=== PATIENT | male | born 1950 | race Caucasian/White ===

== ENCOUNTER 2024-06-01 14:47 | Inpatient (IN) ==
--- NOTE | 2024-06-01 15:02 | Emergency Department Note ---
Impression & Plan Acute pulmonary embolism, Chest pain ED Provider Note NAME: MAURY WOOD AGE: 73 SEX: M : 1950 ARRIVES VIA: Walk-In INFORMANT: Patient ED PROVIDER(S): Federico Jaramillo DO CHIEF COMPLAINT: chest pain HPI: Patient is a 73-year-old male who presents to the ER for right-sided chest wall pain. He notes this started 2 days ago. Is present with movement. Improves with rest. He denies any cough, congestion, or runny nose. No sore throat. No belly pain, nausea, vomiting, or diarrhea. No dysuria, urgency, or frequency. No other exacerbating or remitting factors. provides additional history and notes that he was seen and evaluated Dr. Chapa's office and sent emergently to the ER as he had a pneumothorax. He never had any chest x-ray or imaging done of his chest. ADDITIONAL HISTORY OBTAINED: Per HPI Chronic Medical/Social Conditions Affecting Care: Per HPI PAST MEDICAL HISTORY:See Below PAST SURGICAL HISTORY:See Below FAMILY HISTORY:See Below SOCIAL HISTORY:See Below HOME MEDICATIONS:See Below ALLERGIES:See Below VITALS:See Below PHYSICAL EXAMINATION: GENERAL: Sitting up in bed, alert, well appearing, well nourished, no distress, non-toxic EYE EXAM: normal conjunctiva. PERRL and EOM's grossly intact. OROPHARYNX: no exudate, no erythema, lips, buccal mucosa, and tongue normal and mucous membranes are moist NECK: supple, no nuchal rigidity, no adenopathy, non-tender LUNGS: Clear to auscultation. Normal chest wall mechanics HEART: no murmurs, S1 normal and S2 normal ABDOMEN: abdomen soft, non-tender, normo-active bowel sounds, no masses, no rebound or guarding. UPPER EXTREMITIES: upper extremities are grossly normal. LOWER EXTREMITIES: No pitting edema. NEURO EXAM: Normal sensorium, cranial nerves II-XII grossly intact, normal speech, no gross weakness of arms, no gross weakness of legs. MEDICAL DECISION MAKING: Patient is a 73-year-old male who presents ER for right-sided chest pain. IV was established and blood work was obtained. Labs show mild leukocytosis of 12,000. No significant anemia. INR unremarkable. BMP along with LFTs bilirubin was unremarkable. Troponin was negative. BMP normal. Lipase normal. Per patient was sent in for pneumothorax and needed a chest tube. Patient was seen and evaluated in a 1. After discussion with the and the patient he never had any imaging and this was all felt to be present following Dr. Chapa's exam. On my initial exam breath sounds were clear and patient was transferred to another room following a chest x-ray which showed no pneumothorax. CTA of the chest was obtained and did show PEs. Patient had no bleeding risk factors and this was discussed with him at length. He is placed on heparin drip and bolus. Discussed with the hospitalist admitted for further workup. Consults/Care Managements Discussions: Per [facility] Triage Nursing notes reviewed. Limited review of prior medical records performed Vital Signs: reviewed and remarkable for HTN Differential diagnosis: Cardiac ischemia, aortic dissection, pulmonary embolism, pneumothorax, pneumonia, pericarditis, myocarditis, esophageal rupture, GERD, cholecystitis, pancreatitis, musculoskeletal, as well as other pathologies. ER treatment provided: See below Diagnostics interpreted by me include EKG and cardiac monitoring as listed below: -Cardiac Monitoring: An order was placed for continuous cardiac monitoring. The monitor shows a rate of 80 with sinus rhythm. -ECG: Sinus rhythm with a first-degree AV block Left axis Right bundle branch block QTc 452 -Laboratory studies:Interpreted by me as stated above in MDM and shown below. Imaging studies: Xrays: As interpreted by me: Portable AP upright 1 view of the chest shows subtle opacity in the right lower lobe CTs show: CTA of the chest shows PEs Procedures:none Critical Care: I have personally spent 35 minutes of critical care time in the direct management of this patient. This includes bedside care, interpretation of diagnostic studies, and testing, discussion with consultants, patient, and family members, and other required patient management activities. This 35 minutes is in excess of all separately billable procedures. 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 Beliefs That Will Affect Care: Gnosticism Gnosticism Beliefs: Adventism Current Living Situation: Spouse Feels Safe at Home: Yes Safety Concerns: Feels Safe At This Time Assistive Devices: Glasses and Hearing Aid - Bilateral Allergies Allergies Allergy/AdvReac Type Severity Reaction Status Date / Time clindamycin Allergy Severe Hives Unverified 06/01/24 17:19 Home Meds Home Medications Medication Instructions Recorded Confirmed aspirin 81 mg chewable tablet 81 mg PO DAILY 06/01/24 06/01/24 rosuvastatin 5 mg tablet 5 mg PO HS 06/01/24 06/01/24 tamsulosin 0.4 mg capsule 0.4 mg PO HS 06/01/24 06/01/24 Results & Data (ED) Vital Signs Vital Signs - 24 hr 06/01/24 14:49 06/01/24 14:58 06/01/24 14:58 Temperature 36.4 C L Temperature Source Temporal Artery Scan Pulse Rate 84 Pulse Rate [Apical] 81 Respiratory Rate 20 18 Respiratory Effort / Characteristics Non-Labored Spontaneous Respiratory Depth Normal Respiratory Pattern Blood Pressure 181/79 H Blood Pressure [Left Arm] 155/86 H Blood Pressure Mean 113 Blood Pressure Mean [Left Arm] 109 Pulse Oximetry 95 95 96 Oxygen Delivery Method Room Air Sepsis Recent Fever Within 48 Hours No Sepsis New/Unexplained Change in Mental Status N/A Sepsis Action Taken by Nursing No Action Required 06/01/24 15:02 06/01/24 15:19 Temperature Temperature Source Pulse Rate 87 Pulse Rate [Apical] Respiratory Rate Respiratory Effort / Characteristics Non-Labored Spontaneous Respiratory Depth Normal Respiratory Pattern Regular Blood Pressure Blood Pressure [Left Arm] Blood Pressure Mean Blood Pressure Mean [Left Arm] Pulse Oximetry Oxygen Delivery Method Sepsis Recent Fever Within 48 Hours Sepsis New/Unexplained Change in Mental Status Sepsis Action Taken by Nursing Laboratory Data 06/01/24 15:11 06/01/24 15:11 Lab Results 06/01/24 Range/Units 15:11 WBC 12.64 H (4.8-10.8) K/ul RBC 4.91 (4.70-6.10) M/uL Hgb 15.3 (14.0-18.0) g/dl Hct 45.5 (42.0-52.0) % MCV 92.7 (80.0-100.0) fL MCH 31.2 (25.0-34.0) pg MCHC 33.6 (32.0-36.0) g/dL RDW Std Deviation 46.1 (36.4-46.3) fL RDW Coeff of Brendan 13.5 (11.5-14.5) % Plt Count 174 (130-400) K/uL MPV 10.6 (9.4-12.4) fL Immature Gran % (Auto) 0.3 % Neut % (Auto) 70.2 % Lymph % (Auto) 17.6 % Pondera % (Auto) 11.6 % Eos % (Auto) 0.1 % Baso % (Auto) 0.2 % Neut # (Auto) 8.89 H (1.40-6.50) K/uL Lymph # (Auto) 2.22 (1.20-3.40) K/uL [place]a # (Auto) 1.46 H (0.11-0.59) K/uL Eos # (Auto) 0.01 (0.00-0.50) K/uL Baso # (Auto) 0.02 (0.00-0.20) K/uL Immature Gran # (Auto) 0.04 (0.01-0.20) K/uL PT 10.9 (9.0-12.0) Seconds INR 1.0 (0.9-1.1) APTT 28 (21-31) Seconds PTT Ratio 1.0 Heparin Anti-Xa, Unfract Cancelled Sodium 137 (136-145) mmol/L Potassium 4.1 (3.5-5.1) mmol/L Chloride 102 (98-107) mmol/L Carbon Dioxide 26 (21-32) mmol/L Anion Gap 9 (3-11) BUN 14 (6-23) mg/dl Creatinine 0.95 (0.6-1.4) mg/dl Est Cr Clr Drug Dosing 90.9 ml/min eGFR 83.99 BUN/Creatinine Ratio 14.7 (10-20) Glucose 110 H (70-99(Fasting)) mg/dl Calcium 10.1 (8.6-10.3) mg/dl Total Bilirubin 1.2 H (0.2-1.0) mg/dl AST 20 (13-39) U/L ALT 19 (7-52) U/L Alkaline Phosphatase 71 (34-104) U/L Troponin I High Sens 7.6 (0-20) pg/ml B-Natriuretic Peptide 32 (0-100) pg/ml Total Protein 7.7 (6.0-8.3) gm/dl Albumin 4.5 (3.4-5.0) gm/dl Globulin 3.2 (2.5-4.0) gm/dl Albumin/Globulin Ratio 1.4 (0.9-2) Lipase 10 L (11-82) U/L Administered Medications Acetaminophen (Acetaminophen 500 Mg Tab) 1,000 mg PO Q8 [facility] Stop: 07/01/24 19:59 Last Admin: 06/01/24 20:53 Dose: 1,000 mg Documented By: LARA Heparin Sodium/Dextrose (Heparin Sodium/Dextrose) 25,000 units in 500 mls @ 34 mls/hr IV .[id number] [facility]; Protocol Stop: 07/01/24 17:29 Last Titration: 06/01/24 19:28 Dose: 1,700 units/hr, 34 mls/hr Documented By: LARA Co-signed By: JUAN FRANCISCO Admin: 06/01/24 17:22 Dose: 1,700 units/hr, 34 mls/hr Documented By: NAOMY Co-signed By: ESTEE Rosuvastatin Calcium (Rosuvastatin Calcium 5 Mg Tab) 5 mg PO [facility] Stop: 07/01/24 20:59 Last Admin: 06/01/24 20:53 Dose: 5 mg Documented By: LARA Tamsulosin HCl (Tamsulosin Hcl 0.4 Mg Cap) 0.4 mg PO [facility] Stop: 07/01/24 20:59 Last Admin: 06/01/24 20:53 Dose: 0.4 mg Documented By: [facility] Discontinued Medications Heparin Sodium (Porcine) (Heparin Sod (Porcine) 1000 Unit/Ml) 1 units IV NOW ONE Stop: 06/01/24 17:24 Last Admin: 06/01/24 17:23 Dose: 5,000 units Documented By: NAOMY Co-signed By: ESTEE Heparin Sodium/Dextrose (Heparin Iv Adult Wt-Based Standard W/ Initial Bolus Protocol) 1 each IV NOW STA; Protocol Stop: 06/01/24 17:09 Last Admin: 06/01/24 17:50 Dose: Not Given Documented By: NAOMY Ioversol (Optiray 320 125ml) 120 ml IV ONCE ONE Stop: 06/01/24 16:27 Last Admin: 06/01/24 16:26 Dose: 120 ml Documented By: MARSHAL Morphine Sulfate (Morphine Sulfate 4 Mg/Ml 1 Ml Carp\Vial) 4 mg IV NOW STA Stop: 06/01/24 17:46 Last Admin: 06/01/24 17:50 Dose: 4 mg Documented By: NAOMY Imaging Data Radiologist's Impression: Chest X-Ray 06/01/24 14:58 XR chest 1V portable CLINICAL HISTORY: Chest pain, nonspecific COMPARISON STUDY: No previous studies for comparison. FINDINGS: Lung volumes are normal. There is no pneumothorax. There are trace bilateral pleural effusions. Mild bibasilar opacities are greater on the right. There is mild cardiomegaly. There is no evidence for overt pulmonary edema. IMPRESSION: 1. Trace bilateral pleural effusions with bibasilar opacities, greater on the right. Atelectasis is favored although an infectious process could appear similar. Radiographic follow-up to ensure resolution is recommended. 2. Cardiomegaly without evidence for pulmonary edema. ACT 112: Negative or not required by law. Electronically signed by: Aleksander Betts M.D. 06/01/2024 3:56 PM Chest CTA 06/01/24 15:59 CT PULMONARY ANGIOGRAM. HISTORY: Chest pain TECHNIQUE: Enhanced CT examination of the chest was performed using pulmonary embolism protocol. IV CONTRAST: 100 mL of OMNIPAQUE 300 COMPARISON: None. FINDINGS: PULMONARY ARTERIES: Right lower lobe subsegmental pulmonary emboli LYMPH NODES: No lymphadenopathy by size criteria. CARDIOVASCULAR: Enlarged cardiac size. Right heart strain is present. No pericardial effusion. No aortic aneurysm. There are coronary artery calcifications in keeping with coronary artery disease. MEDIASTINUM: No solid or cystic mediastinal masses. The esophagus is normally decompressed. LUNGS/PLEURA: The central tracheo-bronchial tree is patent. Patchy airspace densities in right lower lobe. Small right pleural effusion. No pneumothorax. No suspicious pulmonary nodules. BONES: No suspicious osseous lesions. VISUALIZED LOWER NECK: Unremarkable. VISUALIZED UPPER ABDOMEN: Hepatosplenomegaly. Nodular thickening of left adrenal gland IMPRESSION: Right lower lobe pulmonary emboli in the subsegmental branches. Patchy densities in right lower lobe may represent a nonspecific airspace process however consideration includes pulmonary infarct. Pneumonia is possible as well. Cardiomegaly. Right-sided heart strain that is nonspecific. Notification to clinician of alert: [facility] was notified about above findings by phone on June 01, 2024 at 4:45 PM by Royal Crespo MD. Readback confirmation was obtained. ACT 112: Positive. There are findings on this exam that require communication between the performing entity and the patient following Patient Test Result Information Act ([place] ACT 112) guidelines Electronically signed by Royal Crespo 06-01-2024 4:47 PM Discharge Plan Visit Data Chief Complaint: Rib Injury/Pain Stated Complaint: X RAY, SOB, PAIN UNDER RIBS ED Provider: Federico Jaramillo Discharge Problem: Acute pulmonary embolism, Chest pain Patient Disposition: Admitted As Inpatient Discharge Instructions Interventions: ED Discharge Assessment Last Done: 06/01/24 19:13 Discharge Problem: Acute pulmonary embolism Qualifiers: Pulmonary embolism type: unspecified Acute cor pulmonale presence: unspecified Qualified Code(s): I26.99 - Other pulmonary embolism without acute cor pulmonale Chest pain Qualifiers: Chest pain type: unspecified Qualified Code(s): R07.9 - Chest pain, unspecified
--- NOTE | 2024-06-01 15:07 | Emergency Department Note ---
ED Visit Note I was asked by Dr. Dillon, ED attending physician, to perform a facial laceration repair on this 73-year-old male patient. Please see Dr. Dillon's dictation for further treatment and final disposition. PROCEDURE NOTE. Examination shows a 1.5 cm V-shaped flap laceration that is in very close proximity to the inferolateral lower eyelid origin. Patient provided verbal consent for laceration repair under local anesthesia. Using lidocaine 1% without epinephrine, good local anesthesia was administered. The wound was lightly cleansed with a Q-tip with a mixture of 9 and normal saline. In sterile fashion, the wound was then approximated using 6-0 nylon simple interrupted sutures x 6. The patient was dispensed a tube of bacitracin ophthalmic ointment. .
[2024-06-01 15:55] LABS: Albumin Globulin Ratio 1.4 (0.9-2); Albumin Level 4.5 gm/dl (3.4-5.0); BUN Creatinine Ratio 14.7 (10-20); Basophils # (auto) 0.02 K/uL (0.00-0.20); Basophils % (auto) 0.2 %; Bilirubin,Total 1.2 mg/dl (0.2-1.0); Calcium 10.1 mg/dl (8.6-10.3); Creatinine Clr Calc Pharmacy 90.9 ml/min; Eosinophils # (auto) 0.01 K/uL (0.00-0.50); Eosinophils % (auto) 0.1 %; Globulin 3.2 gm/dl (2.5-4.0); Hematocrit (blood only) 45.5 % (42.0-52.0); Hemoglobin 15.3 g/dl (14.0-18.0); Immature Granulocytes # (auto) 0.04 K/uL (0.01-0.20); Immature Granulocytes % (auto) 0.3 %; Lymphocytes # (auto) 2.22 K/uL (1.20-3.40); Lymphocytes % (auto) 17.6 %; Mean Corpuscular Hemoglobin 31.2 pg (25.0-34.0); Mean Corpuscular Hgb Conc 33.6 g/dL (32.0-36.0); Mean Corpuscular Volume 92.7 fL (80.0-100.0); Mean Platelet Volume 10.6 fL (9.4-12.4); Monocytes # (auto) 1.46 K/uL (0.11-0.59); Monocytes % (auto) 11.6 %; Neutrophils # (auto) 8.89 K/uL (1.40-6.50); Neutrophils % (auto) 70.2 %; Platelet Count 174 K/uL (130-400); Potassium 4.1 mmol/L (3.5-5.1); RDW Coefficient of Variation 13.5 % (11.5-14.5); RDW Standard Deviation 46.1 fL (36.4-46.3); Red Blood Count 4.91 M/uL (4.70-6.10); Total Protein 7.7 gm/dl (6.0-8.3); White Blood Count 12.64 K/ul (4.8-10.8)
--- NOTE | 2024-06-01 15:58 | XRay Report ---
XR chest 1V portable CLINICAL HISTORY: Chest pain, nonspecific COMPARISON STUDY: No previous studies for comparison. FINDINGS: Lung volumes are normal. There is no pneumothorax. There are trace bilateral pleural effusi ons. Mild bibasilar opacities are greater on the right. There is mild cardiomegaly. There is no evide nce for overt pulmonary edema. IMPRESSION: 1. Trace bilateral pleural effusions with bibasilar opacities, greater on the right. Atelectasis is f avored although an infectious process could appear similar. Radiographic follow-up to ensure resoluti on is recommended. 2. Cardiomegaly without evidence for pulmonary edema. ACT 112: Negative or not required by law. Electronically signed by: Aleksander Betts M.D. 06/01/2024 3:56 PM
[2024-06-01 16:01] LABS: Troponin I High Sensitivity 7.6 pg/ml (0-20)
--- NOTE | 2024-06-01 16:10 | Electrocardiogram Report ---
Test Reason : Blood Pressure : */* mmHG Vent. Rate : 85 BPM Atrial Rate : 85 BPM P-R Int : 242 ms QRS Dur : 126 ms QT Int : 380 ms P-R-T Axes : 85 -40 -17 degrees QTcB Int : 452 ms Sinus rhythm with 1st degree A-V block Left axis deviation Right bundle branch block Minimal voltage criteria for LVH, may be normal variant ( R in aVL ) Possible Lateral infarct , age undetermined Abnormal ECG No previous ECGs available Confirmed by Zach Mckeon ([id number]) on 06/01/2024 4:10:32 PM Referred By: Confirmed By: Zach Mckeon
[2024-06-01] MEDS: OPTIRAY 320 125ml IV ONE (16:26)
--- NOTE | 2024-06-01 16:48 | CT Scan Report ---
CT PULMONARY ANGIOGRAM. HISTORY: Chest pain TECHNIQUE: Enhanced CT examination of the chest was performed using pulmonary embolism protocol. IV CONTRAST: 100 mL of OMNIPAQUE 300 COMPARISON: None. FINDINGS: PULMONARY ARTERIES: Right lower lobe subsegmental pulmonary emboli LYMPH NODES: No lymphadenopathy by size criteria. CARDIOVASCULAR: Enlarged cardiac size. Right heart strain is present. No pericardial effusion. No aortic aneurysm. There are coronary artery calcifications in keeping with coronary artery disease. MEDIASTINUM: No solid or cystic mediastinal masses. The esophagus is normally decompressed. LUNGS/PLEURA: The central tracheo-bronchial tree is patent. Patchy airspace densities in right lower lobe. Small right pleural effusion. No pneumothorax. No suspicious pulmonary nodules. BONES: No suspicious osseous lesions. VISUALIZED LOWER NECK: Unremarkable. VISUALIZED UPPER ABDOMEN: Hepatosplenomegaly. Nodular thickening of left adrenal gland IMPRESSION: Right lower lobe pulmonary emboli in the subsegmental branches. Patchy densities in right lower lobe may represent a nonspecific airspace process however consideration includes pulmonary infarct. Pneumonia is possible as well. Cardiomegaly. Right-sided heart strain that is nonspecific. Notification to clinician of alert: [facility] was notified about above findings by phone on June 01, 2024 at 4:45 PM by Royal Crespo MD. Readback confirmation was obtained. ACT 112: Positive. There are findings on this exam that require communication between the performing entity and the patient following Patient Test Result Information Act ([place] ACT 112) guidelines Electronically signed by Royal Crespo 06-01-2024 4:47 PM
[2024-06-01] MEDS: HEPARIN SODIUM/DEXTROSE 25,000 UNITS/500 ML BAG IV SCH (17:22)
[2024-06-01] MEDS: HEPARIN SOD (PORCINE) 1000 UNIT/ML IV ONE (17:23)
--- NOTE | 2024-06-01 17:44 | History & Physical Report ---
Date of Service June 01, 2024 Assessment & Plan (1) Acute pulmonary embolism: (2) CAD (coronary artery disease): (3) BPH (benign prostatic hyperplasia): Plan: 73-year-old male with history of CAD, BPH presenting with chest pain, right lower rib area that started 2 days ago. Acute right lower lobe pulmonary emboli appears to be unprovoked PE No history of poor mobility, immobilization, hospitalization, surgery, long car drives or flights No known family history of venous thromboembolism CTA chest: Right lower lobe pulmonary emboli in the subsegmental branches. Patchy densities in right lower lobe may represent a nonspecific airspace process however consideration includes pulmonary infarct. Pneumonia is possible as well. Cardiomegaly. Right-sided heart strain that is nonspecific. Troponin negative Check echocardiogram Check BioFire IV heparin drip with bolus ordered Event Decorator And Designer consulted Will need to be referred to buttonhole maker hand for hypercoagulable workup, cancer screening History of CAD Status post stent 3 years ago Hold off on aspirin in light of heparin bolus and drip initiated today Resume if no bleeding, hemoglobin stable Continue Crestor History of BPH Continue Flomax CODE STATUS Full code Disposition Lives at home with his plan of care discussed with patient and his Tesha at bedside in detail and at length all questions answered they are understanding, agreeable, comfortable with the plan of care History of Present Illness Chief Complaint: Right lower chest pain times 2 days Primary Care Provider: Raven Savage DO 73-year-old male with history of CAD, BPH presenting with chest pain, right lower rib area that started 2 days ago. Patient was doing fine until last Friday when he developed sudden right lower rib/chest wall pain while resting-sharp, severe, worse with inspiration, associated with some shortness of breath with exertion. He was able to go to work yesterday but the chest pain actually worsened. Patient was taking Advil with minimal relief. Today, the pain persisted prompting consult to the ER. At the ER, patient was received with stable vital signs overall, not hypoxic. CT chest showed right lower lobe subsegmental pulmonary emboli. Troponin negative EKG no signs of acute ischemia or infarct Heparin drip with bolus started. IV morphine given On exam, patient seen sitting up in bed, on room air, not in distress. States morphine has provided some relief with his pain, but still significant. Denies active dizziness, headache, palpitations, nausea, fevers or chills. No other new symptoms No recent illness, immobilization, poor ambulation, surgery, long car drives or flights. Denies family history of blood clots. Allergies Allergy/AdvReac Type Severity Reaction Status Date / Time clindamycin Allergy Severe Hives Unverified 06/01/24 17:19 Home Medications Medication Instructions Recorded Confirmed Type aspirin 81 mg chewable tablet 81 mg PO DAILY 06/01/24 06/01/24 History rosuvastatin 5 mg tablet 5 mg PO HS 06/01/24 06/01/24 History tamsulosin 0.4 mg capsule 0.4 mg PO HS 06/01/24 06/01/24 History Past Med/Surg History Problem List (Updated 06/01/24 @ 19:32 by Tip Rosa MD) BPH (benign prostatic hyperplasia) CAD (coronary artery disease) Acute pulmonary embolism Social History Smoking Status: Never smoker Feels Safe at Home: Yes Review of Systems Review of Systems: all noted and negative except for above Physical Exam Physical Exam: General- oriented x 3, not in distress, speaks in sentences with no effort or accessory muscle use Head- atraumatic Eyes- PERRL, EOMI, anicteric ENT- oropharynx clear Neck- supple, no JVD, no adenopathy, no thyromegaly; carotids +2/2, no bruits appreciated Lungs- clear to auscultation bilaterally, no rales/wheezes Heart- normal rate, regular rhythm; no murmur, no gallop, no rub appreciated Abdomen- normal bowel sounds, nondistended, soft, nontender, no masses or hepatosplenomegaly Extremities- no pretibial edema, no calf tenderness; peripheral pulses intact Neuro- alert, oriented x 3; CN 2-12 grossly intact; motor 5/5 bilaterall y;sensation 100% on all extremities; no other gross focal neurologic deficits Skin- warm & dry Results & Data Results & Data Vital Signs (Past 12 Hours) Vital Signs Temp Pulse Pulse Resp BP BP Pulse Ox 06/01/24 15:02 87 06/01/24 14:58 96 06/01/24 14:58 81 18 155/86 H 95 06/01/24 14:49 36.4 C L 84 20 181/79 H 95 O2 Del Method 06/01/24 15:02 06/01/24 14:58 06/01/24 14:58 06/01/24 14:49 Room Air all noted and reviewed including below Code Status & VTE Plan VTE Prophylaxis Plan VTE Prophylaxis will be ordered: Yes
[2024-06-01] MEDS: Heparin IV Adult Wt-Based Standard w/ INITIAL Bolus Protocol IV STA (17:50)
[2024-06-01] MEDS: MoRPHine SULFATE 4 MG/ML 1 ML CARP\\VIAL IV STA (17:50)
[2024-06-01 18:16] LABS: Partial Thromboplastin Time 28 Seconds (21-31); Prothrombin Time 10.9 Seconds (9.0-12.0)
[2024-06-01] MEDS ORDERED: ACETAMINOPHEN 325 MG TAB PO PRN (19:34)
[2024-06-01] MEDS ORDERED: MoRPHine SULFATE 4 MG/ML 1 ML CARP\\VIAL IV PRN (19:39)
[2024-06-01] MEDS ORDERED: MAGNESIUM HYDROXIDE SUSP 30 ML UDC PO PRN (19:40)
[2024-06-01] MEDS ORDERED: ACETAMINOPHEN 500 MG TAB PO SCH (19:45)
[2024-06-01] MEDS: ACETAMINOPHEN 500 MG TAB PO SCH (20:53)
[2024-06-01] MEDS: ROSUVASTATIN CALCIUM 5 MG TAB PO SCH (20:53)
[2024-06-01] MEDS: TAMSULOSIN HCL 0.4 MG CAP PO SCH (20:53)
[2024-06-01 23:15] LABS: Adenovirus PCR Not Detected (NotDetected); Bordetella parapertussis PCR Not Detected (NotDetected); Bordetella pertussis PCR Not Detected (NotDetected); Chlamydia pneumoniae PCR Not Detected (NotDetected); Coronavirus 229E PCR Not Detected (NotDetected); Coronavirus CoV-2 (COVID19)PCR Not Detected (NotDetected); Coronavirus HKU1 PCR Not Detected (NotDetected); Coronavirus NL63 PCR Not Detected (NotDetected); Coronavirus OC43PCR Not Detected (NotDetected); Human Metapneumovirus PCR Not Detected (NotDetected); Influenza A PCR Not Detected (NotDetected); Influenza B PCR Not Detected (NotDetected); Mycoplasma pneumoniae PCR Not Detected (NotDetected); Parainfluenza Virus 1 PCR Not Detected (NotDetected); Parainfluenza Virus 2 PCR Not Detected (NotDetected); Parainfluenza Virus 3 PCR Not Detected (NotDetected); Parainfluenza Virus 4 PCR Not Detected (NotDetected); Respiratory Syncytial VirusPCR Not Detected (NotDetected); Rhinovirus/Enterovirus PCR Not Detected (NotDetected)
[2024-06-02 00:11] LABS: ANTI-Xa, UFH(UnfractionatedHep 0.63 IU/ml (0.3-0.7)
[2024-06-02 06:01] LABS: Basophils # (auto) 0.02 K/uL (0.00-0.20); Basophils % (auto) 0.2 %; Eosinophils # (auto) 0.06 K/uL (0.00-0.50); Eosinophils % (auto) 0.5 %; Hematocrit (blood only) 41.6 % (42.0-52.0); Hemoglobin 14.1 g/dl (14.0-18.0); Immature Granulocytes # (auto) 0.04 K/uL (0.01-0.20); Immature Granulocytes % (auto) 0.3 %; Lymphocytes # (auto) 2.92 K/uL (1.20-3.40); Lymphocytes % (auto) 24.7 %; Mean Corpuscular Hgb Conc 33.9 g/dL (32.0-36.0); Mean Corpuscular Volume 91.4 fL (80.0-100.0); Mean Platelet Volume 10.2 fL (9.4-12.4); Monocytes # (auto) 1.67 K/uL (0.11-0.59); Monocytes % (auto) 14.1 %; Neutrophils # (auto) 7.11 K/uL (1.40-6.50); Neutrophils % (auto) 60.2 %; Platelet Count 150 K/uL (130-400); RDW Coefficient of Variation 13.3 % (11.5-14.5); RDW Standard Deviation 45.4 fL (36.4-46.3); Red Blood Count 4.55 M/uL (4.70-6.10); White Blood Count 11.82 K/ul (4.8-10.8)
[2024-06-02 06:20] LABS: BUN Creatinine Ratio 15.1 (10-20); Calcium 9.2 mg/dl (8.6-10.3); Creatinine Clr Calc Pharmacy 100.3 ml/min; Potassium 3.8 mmol/L (3.5-5.1)
[2024-06-02 06:22] LABS: ANTI-Xa, UFH(UnfractionatedHep 0.68 IU/ml (0.3-0.7)
--- NOTE | 2024-06-02 07:01 | Pulmonary Consultation ---
Date of Consultation June 02, 2024 Assessment & Plan (1) Acute pulmonary embolism: Acute cor pulmonale presence: unspecified Pulmonary embolism type: unspecified Qualified Code(s): I26.99 - Other pulmonary embolism without acute cor pulmonale (2) Abnormal chest CT: (3) Chest pain: Chest pain type: unspecified Qualified Code(s): R07.9 - Chest pain, unspecified Plan CTA chest 06/01/2024 personally reviewed: Pulmonary emboli appreciated on the right side Patchy groundglass opacity in the right lower lobe with small right-sided pleural effusion No right heart strain No significant mediastinal lymphadenopathy -- Acute pulmonary emboli with likely right lower pulmonary sPESI 0 BNP normal, troponin normal Would consider to be unprovoked Recommend lifetime anticoagulation, 3-6 months with full dose anticoagulation followed by prophylactic anticoagulation Plan: Follow-up Doppler bilateral lower extremity Follow-up 2D echo No indication for tPA Continue with heparin drip for 24 hours and then transition to DOACs Recommend incentive spirometry with pain management to prevent splinting and increasing the risk of infection on the right side Patient would need repeat 2D echo and possibly repeat CT chest Please note the above document was generated using voice recognition software. It may contain grammatical, syntax or spelling errors.Any formal questions or concerns about the content, text or information contained within the body of this dictation should be directly addressed to the provider for clarification. History of Present Illness Attending Physician: Tip Rosa MD History of Present Illness 73-year-old male admitted to hospital because of pleuritic chest pain Past medical history: Coronary artery disease, BPH Pulmonary consulted for pulmonary emboli The time of examination patient was saturating 97-98% on room air. Patient's was also in the room. He was not in any respiratory distress. Respirate was in the mid teens. Denies any recent travel history, no recent trauma, usually is active and not sedentary No personal or family history of blood clots. Denies any autoimmune disease in the family Is up-to-date with colonoscopy. Had polyps on the last visit which were benign. Social history: Lifetime non-smoker. No history of lung cancer in the family Allergies Allergy/AdvReac Type Severity Reaction Status Date / Time clindamycin Allergy Severe Hives Unverified 06/01/24 17:19 Home Medications Medication Instructions Recorded Confirmed Type aspirin 81 mg chewable tablet 81 mg PO DAILY 06/01/24 06/01/24 History rosuvastatin 5 mg tablet 5 mg PO HS 06/01/24 06/01/24 History tamsulosin 0.4 mg capsule 0.4 mg PO HS 06/01/24 06/01/24 History apixaban 5 mg tablet (Eliquis) See Rx Instructions .Route 06/02/24 Rx .COMPLEX #74 tabs Patient History Social History Smoking Status: Never smoker Hx Alcohol Use: No Hx Substance Use: No Preferred Language: Danish Communication Ability: Effective Flatwork Supervisor Required: No Beliefs That Will Affect Care: Episcopalian Episcopalian Beliefs: Jehovah'S Witness Current Living Situation: Spouse Feels Safe at Home: Yes Safety Concerns: Feels Safe At This Time Assistive Devices: None Review of Systems 2 Review of Systems: All systems reviewed & are unremarkable except as noted in HPI & below Physical Exam 2 Physical Exam: Constitutional: No acute distress HEENT: EOMI, PERRLA Respiratory system: Decreased air entry on the right side, no wheeze, no rhonchi, positive crackles bilateral lower lobes, more on the right side CVS: S1-S2 positive, no murmurs or gallops Abdomen: Soft, nontender, nondistended, positive bowel sounds x4 Extremities: +2 pulses bilaterally radialis, no cyanosis, no edema Neuro: Awake alert oriented x3 Psych: Normal mood and affect Results & Data Results & Data Vital Signs (Past 12 Hours) Vital Signs Temp Pulse Pulse Resp BP Pulse Ox O2 Del Method 06/02/24 03:40 37.0 C 74 18 139/77 95 Room Air 06/02/24 00:52 88 06/01/24 22:37 37.5 C 81 18 141/75 H 93 Room Air 06/01/24 20:00 Room Air 06/01/24 19:49 83 06/01/24 19:27 37.2 C 88 16 137/85 96 Room Air 06/01/24 18:59 84 18 155/87 H 92 Room Air Laboratory Results 06/02/24 05:41 06/02/24 05:41 PG Care Time/CCT Total # of Minutes Spent Total Time Spent with Patient: Total time spent is greater than 50% in coordination of care (as documented) at patient's floor/unit and/or counseling patient: Coding Level of Care Code 85290 INT INP/OBS CARE 3/75MIN Diagnoses Acute pulmonary embolism I26.99 Acute cor pulmonale presence: unspecified Pulmonary embolism type: unspecified Abnormal chest CT R93.89 Chest pain R07.9 Chest pain type: unspecified
--- NOTE | 2024-06-02 07:15 | Hospitalist Progress Note ---
Date of Service June 02, 2024 Assessment & Plan (1) Acute pulmonary embolism: (2) CAD (coronary artery disease): (3) BPH (benign prostatic hyperplasia): Plan: Mr. Bustillos is a 73-year-old male with history of CAD s/p NORM to LAB, prior STEMI, BPH, and colonic polyps presented to ED with chest pain, right lower rib area that started 2 days ago and found to have RLL pulm emboli. # Acute RLL Pulmonary Embolism , unprovoked Pt presents with symptomatic but hemodynamically stable PE with imaging findings of right ventricular strain. Unclear trigger, as pt is without past hx suggestive of hypercoagulable state or recent travel. BNP 32, Trop 7.6 CT PE: possible pulm infarct, RLL emboli, Right heart strain on CT - Anticoagulation: continue heparin at this time - ECHO pending - Will need outpatient hypercoagulability studies - Continue to monitor on Tele - Ensure outpatient age appropriate cancer screening, due for repeat dopplers negative #CAD s/p NORM in LAB 2020 #Hx of STEMI 12/2020 Status post stent 3 years ago completed 2 years of DAPT, on asa monotherapy #BPH Continue Flomax CODE STATUS Full code Disposition Lives at home with his plan of care discussed 75 min at bedside with and patient Admission and Anticipated Discharge Date Admission Date: June 01, 2024 Subjective NAEO Reports feeling better with improvement in pain, but still noted in right lower ribcage with cough/sneezing Physical Exam Constitutional: WD/WN, vitals as above Respiratory: normal respiratory effort, lungs clear to auscultation Cardiovascular: RRR, no murmur, no edema Gastrointestinal (Abdomen): normal bowel sounds, soft, nontender, no hepatosplenomegaly Musculoskeletal: no cyanosis or clubbing, extremities motor strength 5/5 Results & Data Results & Data Vital Signs (Past 12 Hours) Vital Signs Temp Pulse Pulse Resp BP Pulse Ox O2 Del Method 06/02/24 03:40 37.0 C 74 18 139/77 95 Room Air 06/02/24 00:52 88 06/01/24 22:37 37.5 C 81 18 141/75 H 93 Room Air 06/01/24 20:00 Room Air 06/01/24 19:49 83 06/01/24 19:27 37.2 C 88 16 137/85 96 Room Air Laboratory Results Short CBC 06/01/24 06/02/24 Range/Units 15:11 05:41 WBC 12.64 H 11.82 H (4.8-10.8) K/ul Hgb 15.3 14.1 (14.0-18.0) g/dl Hct 45.5 41.6 L (42.0-52.0) % Plt Count 174 150 (130-400) K/uL BMP 06/01/24 06/02/24 15:11 05:41 Sodium 137 134 L Potassium 4.1 3.8 Chloride 102 102 Carbon Dioxide 26 24 BUN 14 13 Creatinine 0.95 0.86 Glucose 110 H 117 H Calcium 10.1 9.2 Liver Function 06/01/24 Range/Units 15:11 Total Bilirubin 1.2 H (0.2-1.0) mg/dl AST 20 (13-39) U/L ALT 19 (7-52) U/L Alkaline Phosphatase 71 (34-104) U/L Albumin 4.5 (3.4-5.0) gm/dl Diagnostic Findings Reviewed EMR link: c-scope with tubular adenomas and sessile serrated polyps 11/14/2020: Impression: - One 7 mm polyp in the ascending colon, removed with a hot snare. Resected and retrieved. - Three 7 to 10 mm polyps in the rectum, removed with a hot snare. Resected and retrieved. - Diverticulosis in the sigmoid colon and in the descending colon. - The examined portion of the ileum was normal. - The examination was otherwise normal. Recommendation: - No aspirin, ibuprofen, naproxen, or other non-steroidal anti-inflammatory drugs for 10 days after polyp removal. - Await pathology results. - Repeat colonoscopy in 3 years for surveillance. - Return sooner if symptoms occur. Polyps can be missed - Discharge patient to home. Medications Administered Home Medications Medication Instructions Recorded Confirmed Last Taken aspirin 81 mg chewable tablet 81 mg PO DAILY 06/01/24 06/01/24 06/01/24 rosuvastatin 5 mg tablet 5 mg PO HS 06/01/24 06/01/24 05/31/24 tamsulosin 0.4 mg capsule 0.4 mg PO HS 06/01/24 06/01/24 05/31/24 Active Medications Generic Name Dose Route Start Last Admin Trade Name Freq PRN Reason Stop Dose Admin Acetaminophen 1,000 mg 06/01/24:00 06/02/24 05:48 Acetaminophen 500 Mg Tab PO 07/01/24 19:59 1,000 mg Q8 DANNIE Administration Heparin Sodium/Dextrose 25,000 units in 500 mls @ 34 mls/hr 06/01/24 17:30 06/02/24 07:04 Heparin Sodium/Dextrose IV 07/01/24 17:29 1,700 units/hr .[id number] DANNIE 34 mls/hr Titration Protocol 1,700 UNITS/HR Rosuvastatin Calcium 5 mg 06/01/24 21:00 06/01/24 20:53 Rosuvastatin Calcium 5 Mg Tab PO 07/01/24 20:59 5 mg HS DANNIE Administration Tamsulosin HCl 0.4 mg 06/01/24 21:00 06/01/24 20:53 Tamsulosin Hcl 0.4 Mg Cap PO 07/01/24 20:59 0.4 mg HS DANNIE Administration (1) Acute pulmonary embolism Acute cor pulmonale presence: unspecified Pulmonary embolism type: unspecified Qualified Code(s): I26.99 - Other pulmonary embolism without acute cor pulmonale
--- OUTSIDE RECORDS SUMMARY | 2024-06-02 09:57 | External Medical Summary | Summary of Care ---
Author Name Unknown Organization [facility] Address [address] [address] Care Team Providers Care Heel Coverer Machine Operator Name Role Phone Emily Coon MD Primary Care Provider [phone] Encounter Details Date Type Department Care Team (Late st Contact Info) Description 01/11/2024 Scan Encounter [facility] [address] [id number] Default, Provider, Allergies Active Allergy Reactions Criticality Noted Date Comments Atorvastatin Calcium Musculoskeletal 07/30/2021 Muscle pain Clindamycin Hives 07/26/2021 documented as of this encounter (statuses as of 02/02/2024) Medications Medication Sig Dispensed Refills Start Date End Date Status Tamsulosin HCl (FLOMAX) 0.4 MG Oral CapIndications:Benign prostatic hyperplasia with urinary hesitancy Take 0.4 mg by mouth DAILY. Active aspirin (ECOTRIN) 81 MG Oral Tab ECIndications:ST elevation myocardial infarction involving left anterior descending (LAD) coronary artery (HCC),ASHD (arteriosclerotic heart disease) Take 1 Tablet by mouth DAILY. 90 Tablet 3 01/30/2021 Active Rosuvastatin Calcium 5 MG Oral Tab Take 1 Tablet by mouth EVERY BEDTIME. 90 Tablet 3 12/29/2023 Active documented as of this encounter (statuses as of 02/02/2024) Active Problems Problem Noted Date Diagnosed Date Pseudophakia, right eye 08/14/2021 Combined form of age-related cataract, left eye 08/14/2021 Epiretinal membrane (ERM) of right eye Combined forms of age-related cataract of right eye 07/26/2021 Overview (07/26/2021): Added automatically from request for surgery [id number] History of myocardial infarction 01/11/2021 Overview (02/15/2021): December 2020: STEMI /w PCI/NORM to LAD Testosterone deficiency 10/26/2020 documented as of this encounter (statuses as of 02/02/2024) Resolved Problems Problem Noted Date Diagnosed Date Resolved Date STEMI (ST elevation myocardial infarction) 01/11/2021 02/15/2021 Overview (01/31/2021): December 2020: STEMI - PCI/NORM to LAD documented as of this encounter (statuses as of 02/02/2024) Immunizations Name Administration Dates Next Due 12+ SARS-COV-2 MONOVALENT VACCINATION ,11/26/2020 documented as of this encounter Social History Tobacco Use Types Packs/Day Years Used Date Smoking Tobacco: Never Smokeless Tobacco: Never Alcohol Use Standard Drinks/Week Comments Not Currently 0 (1 standard drink = 0.6 oz pur e alcohol) Sex and Gender Information Value Date Recorded Sex Assigned at Not on file Gender Identity Not on file Sexual Orientation Not on file documented as of this encounter Plan of Treatment Upcoming Encounters Date Type Department Care Team (Late st Contact Info) Description 01/10/2025 11:00 AM EDT Office Visit [facility] [address] [phone] Robb Fairchild MD [address] [address] Health Maintenance Due Date Last Done Comments CT Colonography 1950 Cologuard 1950 FIT/FOBT 1950 MEDICARE ANNUAL WELLNESS VISIT 1950 SDOH SCREENING 1950 Sigmoidoscopy 1950 PNEUMOCOCCAL 65+YRS (1 of 2 - PCV) 1955 DTaP/Tdap/Td Vaccines (1 - Tdap) 1968 ZOSTER IMMUNIZATION SERIES (1 of 2) 1999 RSV IMMUNIZATION 60 YRS+ or (1 - 1-dose 60+ series) 2009 FALL RISK ASSESSMENT 2014 DEPRESSION SCREENING 04/27/2021 10/26/2020 COVID-19 Vaccine ( season) 2023 12/23/2020, 11/26/2020 eGFR (BMP/CMP) 01/17/2024 01/16/2023, 12/21/2021 INFLUENZA VACCINE (#1) 2024 LIPID DISORDER Diagnostic 07/07/20242022, 01/16/2023, 05/10/2022, Additional history exists Colonoscopy 11/14/2030 11/14/2020, 11/14/2020 Colorectal Cancer Screening 11/14/2030 HEPATITIS C SCREENING Completed 12/21/2021 HEPATITIS A IMMUNIZATION SERIES Aged Out No longer eligible based on patient's age to complete this topic HPV IMMUNIZATION SERIES Aged Out No l onger eligible based on patient's age to complete this topic MENINGOCOCCAL VACCINE IMM Aged Out No longer eligible based on patient's age to complete this topic RSV IMMUNIZATION <20 MONTHS Aged Out No longer eligible based on patient's age to complete this topic documented as of this encounter Medical Devices Implanted Type Area Block Hand Device Identifier Shelf Expiration Date Model / Serial / Lot Iol [id number] Sp As Aspheric - [id number] Implanted:Qty: 1 on 08/13/2021 by Darlin Saldivar MD at [facility] Right: Eye [employer] 08/27/2025 [id number].160 / [id number] / documented as of this encounter Insurance Payer Benefit Plan / Group Subscriber ID Effective Dates Phone Address Type [employer] HMO PPO [employer] PPO [id number] 1 2022-Pres ent [address] [place] [phone] [facility] BC/BS documented as of this encounter Care Teams Heel Coverer Machine Operator Relationship Specialty Start Date End Date Emily Coon MD [address] [place] [address] [place] [address] PCP - General INTERNAL MEDICINE 10/27/20 documented as of this encounter
--- OUTSIDE RECORDS SUMMARY | 2024-06-02 09:57 | External Medical Summary | Summary of Care ---
Author Name Unknown Organization [facility] Address [address] [address] Care Team Providers Care Retail Tire Sales Manager Name Role Phone Emily Coon MD Primary Care Provider [phone] Reason for Visit * Reason Comments Follow Up Encounter Details Date Type Department Care Team (Late st Contact Info) Description 01/12/2024 10:00 AM EDT Office Visit [facility] [address] [phone] Robb Fairchild MD [address] [address] Coronary artery disease involving [place] coronary artery of [place] heart without angina pectoris (Primary Dx); Hypertension, unspecified type; Dyslipidemia; First degree AV block; Right bundle branch block Allergies Active Allergy Reactions Criticality Noted Date Comments Atorvastatin Calcium Musculoskeletal 07/30/2021 Muscle pain Clindamycin Hives 07/26/2021 documented as of this encounter (statuses as of 01/12/2024) Medications Medication Sig Dispensed Refills Start Date [...] EVERY BEDTIME. 90 Tablet 3 12/29/2023 Active Coenzyme Q10 10 MG Oral Cap Take by mouth. Active Vitamin D, Cholecalciferol, 50 MCG (1999 UT) Oral Cap Take 1 Tablet by mouth. Active Multiple Vitamins-Minerals (MENS MULTIVITAMIN) Oral Tab Take 1 Tablet by mouth. Active Sildenafil Citrate 50 MG Oral Tab Take 1 Tablet by mouth DAILY NEEDED. 07/29/2023 Active documented as of this encounter (statuses as of 01/12/2024) Active Problems Problem Noted Date Diagnosed Date Pseudophakia, right eye 08/14/2021 Combined form of age-related cataract, left eye 08/14/2021 Epiretinal membrane (ERM) of right eye Combined forms of age-related cataract of right eye 07/26/2021 Overview (07/26/2021): Added automatically from request for surgery [id number] History of myocardial infarction 01/11/2021 Overview (02/15/2021): December 2020: STEMI /w PCI/NORM to LAD Testosterone deficiency 10/26/2020 documented as of this encounter (statuses as of 01/12/2024) Resolved Problems Problem Noted Date Diagnosed Date Resolved Date STEMI (ST elevation myocardial infarction) 01/11/2021 02/15/2021 Overview (01/31/2021): December 2020: STEMI - PCI/NORM to LAD documented as of this encounter (statuses as of 01/12/2024) Immunizations Name Administration Dates Next Due MODERNA 12+ SARS-COV-2 MONOVALENT VACCINATION ,11/26/2020 documented as [...] on file documented as of this encounter Last Filed Vital Signs Vital Sign Reading Time Taken Comments Blood Pressure 126/74 01/12/2024 10:02 AM EDT Pulse 64 01/12/2024 10:02 AM EDT Temperature - - Respiratory Rate - - Oxygen Saturation 96% 01/12/2024 10:02 AM EDT Inhaled Oxygen Concentration - - Weight 105.2 kg (232 lb) 01/12/2024 10:02 AM EDT Height 193 cm (6' 4") 01/12/2024 10:02 AM EDT Body Mass Index 28.24 01/12/2024 10:02 AM EDT documented in this encounter Progress Notes * Robb Fairchild MD - 01/12/2024 10:00 AM EDT This is a virtual visit. No vital signs or in-office diagnostics were completed during this visit. These items may be accomplished during subsequent visits. This remote telehealth virtual visit was provided through [employer], with the patient located at [facility] , and I was located at my home. Patient presented alone. PATIENT: Keron Bustillos : 1950 DATE OF SERVICE: 01/12/2024 Chief Complaint Patient presents with Follow Up History of Present Illness: Pt is a pleasant 71M here for follow up. Accompanied by spouse. Relevant medical history - Coronary artery disease-patient had anterior STEMI in 01/15 s/p PCI with drug- eluting stent (Resolute 3.5 mm x 18 mm). Patient had an LVEF of 50 to 55% Hypertension Dyslipidemia LDL was 129 in December. Pt denies any chest pain, SOB, orthopnea, PND, palpitations, dizziness or syncopal episodes. Works part-time. BP at home - 120 to 130s/ 70 to 80s HR at home - 50s to 60s EKG - NSR, right bundle branch block with first degree AV block Patient Active Problem List Diagnosis Date Noted Pseudophakia, right eye 08/14/2021 Combined form of age-related cataract, left eye 08/14/2021 Epiretinal membrane (ERM) of right eye 08/14/2021 Combined forms of age-related cataract of right eye 07/26/2021 Added automatically from request for surgery [id number] History of myocardial infarction 01/11/2021: STEMI /w PCI/NORM to LAD Testosterone deficiency 10/26/2020 Allergies Allergen Reactions Atorvastatin Calcium Musculoskeletal Muscle pain Clindamycin Hives Current Outpatient Medications Medication Sig aspirin (ECOTRIN) 81 MG Oral Tab EC Take 1 Tablet by mouth DAILY. Coenzyme Q10 10 MG Oral Cap Take by mouth. Multiple Vitamins-Minerals (MENS MULTIVITAMIN) Oral Tab Take 1 Tablet by mouth. Rosuvastatin Calcium 5 MG Oral Tab Take 1 Tablet by mouth EVERY BEDTIME. Sildenafil Citrate 50 MG Oral Tab Take 1 Tablet by mouth DAILY NEEDED. Tamsulosin HCl (FLOMAX) 0.4 MG Oral Cap Take 0.4 mg by mouth DAILY. Vitamin D, Cholecalciferol, 50 MCG (2000 UT) Oral Cap Take 1 Tablet by mouth. No current facility-administered medications for this visit. Past Surgical History: Procedure Laterality Date COLONOSCOPY N/A 11/14/2020 Procedure: COLONOSCOPY; Surgeon: Domingo Fried MD; Location: [facility] MAIN OR HEMORRHOIDECTOMY NE REMV CATARACT EXTRACAP,INSERT LENS Right 08/13/2021 Procedure: PHACOEMULSIFICATION WITH INTRA OCULAR LENS; Surgeon: Darlin Saldivar MD; Location: [facility] MAIN OR NE REMV PILONIDAL LESION COMPLIC NE REPAIR OF NASAL SEPTUM X2 NE REPAIR SLIDING INGUINAL HERNIA Left Family History Problem Relation Age of Onset Pulmonary Father Social History Occupational History Not on file Tobacco Use Smoking status: Never Smokeless tobacco: Never Vaping Use Vaping status: Never Used Substance and Sexual Activity Alcohol use: Not Currently Drug use: Not Currently Sexual activity: Yes Partners: Female REVIEW OF SYSTEMS: All remaining review of systems was negative except for as noted in the history of present illness/subjective. PHYSICAL EXAMINATION: VITALS: BP 126/74 (BP Location: Right arm, Patient Position: Sitting) | Pulse 64 | Ht 6' 4" (1.93 m) | Wt 232 lb (105.2 kg) | SpO2 96% | BMI 28.24 kg/m Body mass index is 28.24 kg/m. GENERAL: Well developed, well nourished 73-y.o. male MENTAL STATUS: Oriented x3, normal mood and affect. HEENT: Mucous membranes pink and moist JUGULAR VEINS: Normal venous pressure, normal a and v waves Heart - S1, S2 Lungs - CTA/P EXTREMITIES: Trace edema NEUROLOGIC: Non focal DERMATOLOGIC: No rashes LABORATORY DATA: Lab Results Component Value Date CHOL 167 07/07/2023 TRIG 110 07/07/2023 HDL 64 07/07/2023 LDL 81 07/07/2023 LDLHDLRATIO 1.4 12/21/2021 CHOLHDLRATIO 2.6 12/21/2021 Lab Results Component Value Date NA 137 01/16/2023 K 4.1 01/16/2023 CL 104 01/16/2023 CO2 23 01/16/2023 GLUCOSE 98 01/16/2023 BUN 21 01/16/2023 CREATININE 1.20 (H) 01/16/2023 CALCIUM 9.6 01/16/2023 TP 7.0 01/16/2023 ALBUMIN 4.2 01/16/2023 AST 26 01/16/2023 ALT 26 01/16/2023 ALK 87 01/16/2023 TBILI 0.50 01/16/2023 EGFR >60 01/16/2023 Lab Results Component Value Date TSH 2.52 01/16/2023 Lab Results Component Value Date WBC 8.08 01/16/2023 HGB 15.0 01/16/2023 HCT 44.4 01/16/2023 PLAT 171 01/16/2023 I personally reviewed patients prior medical records IMPRESSION/PLAN: ICD-10-CM 1. Coronary artery disease involving [place] coronary artery of [place] heart without angina [id number] 2. Hypertension, unspecified type I10 3. Dyslipidemia E78.5 4. First degree AV block I44.0 5. Right bundle branch block I45.10 Stable from cardiac perspective. No anginal symptoms. No evidence of acute heart failure. Blood pressure at goal. No symptoms related to first-degree AV block/right bundle branch block - conservative management. Last LDL not at goal. Dietary measures reinforced. Continue with current statin regimen. follow up in 12 months Author: Robb Fairchild MD 01/12/2024 10:50 documented in this encounter Plan of Treatment Upcoming Encounters Date Type Department Care Team (Late st Contact Info) Description 01/10/2025 11:00 AM EDT Office Visit [facility] [address] [phone] Robb Fairchild MD [address] [address] [...] DEPRESSION SCREENING 04/27/2021 10/26/2020 COVID-19 Vaccine ( - season) 2023 12/23/2020, 11/26/2020 eGFR (BMP/CMP) 01/17/2024 01/16/2023, 12/21/2021 INFLUENZA VACCINE (Season Ended) 2024 LIPID DISORDER Diagnostic 07/07/20242022, 01/16/2023, 05/10/2022, [...] this encounter Medical Devices Implanted Type Area Payroll Tax Analyst Device Identifier Shelf Expiration Date Model / Serial / Lot Iol Sa60wf.160 Sp As Aspheric - [id number] Implanted:Qty: 1 on 08/13/2021 by Darlin Saldivar MD at [facility] Right: Eye [employer] 08/27/2025 SA60WF.160 / [id number] / documented as of this encounter Visit Diagnoses Diagnosis Coronary artery disease involving [place] coronary artery of [place] heart without angina pectoris- Primary Hypertension, unspecified type Dyslipidemia Other and unspecified hyperlipidemia First degree AV block First degree atrioventricular block Right bundle branch block documented in this encounter Care Teams Retail Tire Sales Manager Relationship Specialty Start Date End Date Emily Coon MD [address] [place] [address] PCP - General INTERNAL MEDICINE 10/27/20 documented as of this encounter
--- OUTSIDE RECORDS SUMMARY | 2024-06-02 09:57 | External Medical Summary | Summary of Care ---
Author Name Unknown Organization [facility] Address [address] [place] [address] Phone [phone] Care Team Providers Care Drum Sander Offbearer Name Role Phone Raven Savage DO Primary Care Provider [phone] Reason for Visit * Reason Comments eRx-Medication Refill Encounter Details Date Type Department Care Team (Late st Contact Info) Description 02/26/2024 Refill Family Practice [facility] [address] [place] [address], [place] [id number] Raven Savage DO [address] [place] [address] BPH with obstruction/lower urinary tract symptoms Allergies Active Allergy Reactions Criticality Noted Date Comments Atorvastatin 07/30/2021 Other reaction(s): Musculoskeletal Muscle pain Sulfamethoxazole-Trimetho prim Rash 03/23/2023 Clindamycin Hives 07/26/2021 documented as of this encounter (statuses as of 02/27/2024) Medications Medication Sig Dispensed Refills Start Date End Date Status Rosuvastatin Calcium 5 MG Oral Tablet (Crestor) Take 1 Tablet by mouth. 08/14/2021 Active Vitamin D (Cholecalciferol) 50 MCG (1999 UT) Oral Capsule Take by mouth 1 Tablet daily . Active Mens Multivitamin Oral Tablet Take by mouth 1 Tablet daily . Active Aspirin 81 MG Oral Tablet Delayed Release Take 1 Tablet by mouth in the morning. Active Neuriva Oral Capsule Take by mouth. Active Co Q 10 10 MG Oral Capsule Take by mouth. Active Sildenafil Citrate 50 MG Oral TabletIndications: Testosterone deficiency Take 1 Tablet by mouth daily as needed for Erectile Dysfunction. 10 Tablet 07/29/2023 Active Tamsulosin HCl 0.4 MG Oral Capsule (Flomax)Indication s:BPH with obstruction/lower urinary tract symptoms TAKE 1 CAPSULE BY MOUTH EVERY MORNING 90 Capsule 1 02/27/2024 Active Tamsulosin HCl 0.4 MG Oral Capsule (Flomax)Indication s:BPH with obstruction/lower urinary tract symptoms TAKE 1 CAPSULE BY MOUTH EVERY MORNING 90 Capsule 1 09/06/2023 Discontinued documented as of this encounter (statuses as of 02/27/2024) Active Problems Problem Noted Date Diagnosed Date BPH with obstruction/lower urinary tract symptom s 05/10/2022 Chronic frontal sinusitis 05/10/2022 Coronary artery disease invo lving [place] coronary artery of [place] heart without angina pectoris 05/10/2022 History of myocardial infarction 01/11/2021 Overview: December 2020: STEMI /w PCI/NORM to LAD Testosterone deficiency 10/26/2020 documented as of this encounter (statuses as of 02/27/2024) Resolved Problems Problem Noted Date Diagnosed Date Resolved Date Epiretinal membrane (ERM) of right eye 08/14/2021 05/10/2022 Pseudophakia, right eye 08/14/202104/27 Combined form of age-related cataract, left eye 08/14/2021 05/10/2022 Overview: Added automatically from request for surgery [id number] documented as of this encounter (statuses as of 02/27/2024) Immunizations Name Administration Dates Next Due COVID-19 mRNA, LNP-s, No Pre serve, 2-Dose Series (Moderna) 12/23/2020,11/26/2020 documented as of this encounter Social History Tobacco Use Types Packs/Day Years Used Date Smoking Tobacco: Never Smokeless Tobacco: Never Alcohol Use Standard Drinks/Week Comments Not Currently 0 (1 standard drink = 0.6 oz pur e alcohol) Utilities Answer Date Recorded Do you have trouble paying y our heating, water, or electric bill? (Adult - for ages 18 years and over) Not on file 01/13/2024 Is your family able to pay t he heat, water, or electric bill? (Household - for ages 0-17 years) Not on file 01/13/2024 Does your family have access to good internet? (Household - for ages 0-17 years) Not on file 01/13/2024 Social Connections Answer Date Recorded How often do you feel lonely or isolated from those around you? (Adult - for ages 18 years and over) Not on file 01/13/2024 Sex and Gender Information Value Date Recorded Sex Assigned at Not on file Gender Identity Not on file Sexual Orientation Not on file Job Start Date Occupation Industry Not on file Not on file Not on file documented as of this encounter Miscellaneous Notes * Telephone Encounter - Magaly Macdonald [facility] - 02/27/2024 5:47 AM EDTSigned Prescriptions: Disp Refills Tamsulosin HCl 0.4 MG Oral Capsule (Flomax)90 Cap*1 Sig: TAKE 1 CAPSULE BY MOUTH EVERY MORNINGAuthorizing Provider: RAVEN SAVAGE User: MAGALY MACDONALD documented in this encounter Plan of Treatment Upcoming Encounters Date Type Department Care Team (Late st Contact Info) Description 07/05/2024 1:40 PM EST Office Visit Family Practice [address] [place] [address] Raven Savage DO [address] [place] [address] Health Maintenance Due Date Last Done Comments Depression Screening 1961 Hepatitis C Screening 1967 DTaP,Tdap,and Td Vaccines (1 - Tdap) 1968 Cologuard 1994 Colonoscopy 1994 Colorectal Cancer Screening 1994 Fecal Occult Blood Test 1994 Sigmoidoscopy 1994 Zoster Vaccines (1 of 2) 1999 Pneumococcal Vaccine: 65+ Years (1 of 1 - PCV) 2014 COVID-19 Vaccine (3 - 2022-2 4 season) 2023 12/23/2020, 11/26/2020 Influenza Vaccine (FLU shot) (#1) 2024 HPV (Gardasil) Vaccine Aged Out No lo nger eligible based on patient's age to complete this topic Hepatitis B Vaccine Aged Out No longe r eligible based on patient's age to complete this topic MENINGOCOCCAL (MENACTRA/MENVEO) Aged Out No longer eligible b ased on patient's age to complete this topic documented as of this encounter Medical Devices Not on filedocumented as of this encounter Visit Diagnoses Diagnosis BPH with obstruction/lower urinary tract symptoms Hypertrophy of prostate with urinary obstruction and other lower urinary tract symptoms (LUTS) documented in this encounter Care Teams Drum Sander Offbearer Relationship Specialty Start Date End Date Raven Savage DO [address] [facility] [place] [address] PCP - General Family Medicine 02/04/22 documented as of this encounter
--- OUTSIDE RECORDS SUMMARY | 2024-06-02 09:57 | External Medical Summary | Summary of Care ---
Author Name Unknown Organization [facility] Address [address] [address] Care Team Providers Care Thread Laster Name Role Phone Emily Coon MD Primary Care Provider [phone] Reason for Visit * Reason Comments Medication Refill Encounter Details Date Type Department Care Team (Late st Contact Info) Description 12/25/2023 Refill Central Scheduling [address] [address] Georgina Latham PA-C [address] [facility] [place] [address] Allergies Active Allergy Reactions Criticality Noted Date Comments Atorvastatin Calcium Musculoskeletal 07/30/2021 Muscle pain Clindamycin Hives 07/26/2021 documented as of this encounter (statuses as of 12/29/2023) Medications Medication Sig Dispensed Refills Start Date [...] by mouth EVERY BEDTIME. 90 Tablet 3 01/23/2023 Active documented as of this encounter (statuses as of 12/29/2023) Active Problems Problem Noted Date Diagnosed Date Pseudophakia, right eye 08/14/2021 Combined form of age-related cataract, left eye 08/14/2021 Epiretinal membrane (ERM) of right eye 2 Combined forms of age-related cataract of right eye 07/26/2021 Overview (07/26/2021): Added automatically from request for surgery [id number] History of myocardial infarction 01/11/2021 Overview (02/15/2021): December 2020: STEMI /w PCI/NORM to LAD Testosterone deficiency 10/26/2020 documented as of this encounter (statuses as of 12/29/2023) Resolved Problems Problem Noted Date Diagnosed Date Resolved Date STEMI (ST elevation myocardial infarction) 01/11/2021 02/15/2021 Overview (01/31/2021): December 2020: STEMI - PCI/NORM to LAD documented as of this encounter (statuses as of 12/29/2023) Immunizations Name Administration Dates Next Due MODERNA [...] Description 01/12/2024 10:00 AM EDT Office Visit [facility] [address] [phone] Robb Fairchild MD [address] [address] 01/12/2024 10:15 AM EDT Orders Only [facility] [address] [address] Health Maintenance Due Date Last Done Comments CT Colonography 1949 Cologuard 1949 FIT/FOBT 1949 MEDICARE ANNUAL WELLNESS VISIT 1949 SDOH SCREENING 1949 Sigmoidoscopy 1949 PNEUMOCOCCAL 65+YRS (1 of 2 - PCV) 1955 DTaP/Tdap/Td Vaccines (1 - Tdap) 1968 ZOSTER IMMUNIZATION SERIES ( 1 of 2) 1999 RSV IMMUNIZATION 60 YRS+ or (1 - 1-dose 60+ series) 2009 FALL RISK ASSESSMENT 2014 DEPRESSION SCREENING 04/27/2021 10/26/2020 COVID-19 Vaccine (3 - 2022-2 4 season) 2023 12/23/2020, 11/26/2020 LIPID DISORDER Diagnostic 01/17/20242022, 05/10/2022, 12/21/2021 eGFR (BMP/CMP) 01/17/2024 01/16/2023, 12/21/2021 INFLUENZA VACCINE (Season Ended) 2024 Colonoscopy 11/14/2030 11/14/2020, 11/14/2020 Colorectal Cancer Screening 11/14/2030 HEPATITIS C SCREENING Completed 12/21/2021 HEPATITIS A IMMUNIZATION SERIES Aged Out No longer eligible b ased [...] this encounter Medical Devices Implanted Type Area Message Clerk Device Identifier Shelf Expiration Date Model / Serial / Lot Iol Sa60wf.160 Sp As Aspheric - [id number] Implanted:Qty: 1 on 08/13/2021 by Darlin Saldivar MD at [facility] Right: Eye [employer] 08/27/2025 SA60WF.160 / [id number] / documented as of this encounter Insurance Payer Benefit Plan / Group Subscriber ID Effective Dates Phone Address Type [employer] COMMUNITY BLUE MEDICARE HMO PPO [employer] COMMUN[employer] BLUE MEDICARE PPO [id number] 1 2022-Pres ent [address] [place] [phone] Rina ERAZO/BS documented as of this encounter Care Teams Thread Laster Relationship Specialty Start Date End Date Emily Coon MD [address] [facility] [place] [address] PCP - General INTERNAL MEDICINE 10/27/20 documented as of this encounter
--- OUTSIDE RECORDS SUMMARY | 2024-06-02 09:57 | External Medical Summary | Summary of Care ---
Author Name Unknown Organization [facility] Address [address] [address] Care Team Providers Care Car Detailer Name Role Phone Emily Coon MD Primary Care Provider [phone] Reason for Visit * Reason Onset Date Comments Medication Refill 12/29/2023 Encounter Details Date Type Department Care Team (Late st Contact Info) Description 12/29/2023 Refill [facility] [address] [phone] Lucía Mesa CRNP [address] [address] Allergies Active Allergy Reactions Criticality Noted Date Comments Atorvastatin Calcium Musculoskeletal 07/30/2021 Muscle pain Clindamycin Hives 07/26/2021 documented as of this encounter (statuses as of 12/29/2023) Medications Medication Sig Dispensed Refills Start Date End Date Status Tamsulosin HCl (FLOMAX) 0.4 MG Oral CapIndications:Lyndon ign prostatic hyperplasia with urinary hesitancy Take 0.4 mg by mouth DAILY. Active aspirin (ECOTRIN) 81 MG Oral Tab ECIndications:ST elevation myocardial infarction involving left anterior descending (LAD) coronary artery (HCC),ASHD (arteriosclerotic heart disease) Take 1 Tablet by mouth DAILY. 90 Tablet 3 01/30/2021 Active Rosuvastatin Calcium 5 MG Oral Tab Take 1 Tablet by mouth EVERY BEDTIME. 90 Tablet 3 12/29/2023 Active Rosuvastatin Calcium 5 MG Oral Tab Take 1 Tablet by mouth EVERY BEDTIME. 90 Tablet 3 01/23/2023 12/29/2023 Discontinued (Reorder) documented as of this encounter (statuses as of 12/29/2023) Active Problems Problem Noted Date Diagnosed Date Pseudophakia, right eye 08/14/2021 Combined form of age-related cataract, left eye 08/14/2021 Epiretinal membrane (ERM) of right eye 2 Combined forms of age-related cataract of right eye 07/26/2021 Overview (07/26/2021): Added automatically from request for surgery [id number] History of myocardial infarction 01/11/2021 Overview (02/15/2021): [...] encounter Miscellaneous Notes * Telephone Encounter - Lucía Mesa CRNP - 12/29/2023 6:56 AM EDT Requested Prescriptions Signed Prescriptions Disp Refills Rosuvastatin Calcium 5 MG Oral Tab 90 Tablet 3 Sig: Take 1 Tablet by mouth EVERY BEDTIME. Authorizing Provider: LUCÍA MESA CRNP documented in this encounter Plan of Treatment Upcoming Encounters Date Type Department Care Team (Late Contact Info) Description 01/12/2024 10:00 AM EDT [...] this encounter Medical Devices Implanted Type Area Card Hanger Device Identifier Shelf Expiration Date Model / Serial / Lot Iol Sa60wf.160 Sp As Aspheric - [id number] Implanted:Qty: 1 on 08/13/2021 by Lucía Saldivar MD at [facility] Right: Eye [employer] 08/27/2025 SA60WF.160 / [id number] / documented as of this encounter Insurance Payer Benefit Plan / Group Subscriber ID Effective Dates Phone Address Type [employer] COMMUN[employer] BLUE MEDICARE HMO PPO [employer] COMM[employer]UE MEDICARE PPO [id number] 1 2022-Pres ent [address] [place] [phone] [facility]/BS documented as of this encounter Care Teams Car Detailer Relationship Specialty Start Date End Date Emily Coon MD [address] [facility] [facility] [place] [address] PCP - General INTERNAL MEDICINE 10/27/20 documented as of this encounter
--- OUTSIDE RECORDS SUMMARY | 2024-06-02 09:57 | External Medical Summary | Summary of Care ---
Author Name Unknown Organization [facility] Address [address] [address] Care Team Providers Care Glass Fitter Name Role Phone Emily Coon MD Primary Care Provider [phone] Encounter Details Date Type Department Care Team (Late st Contact Info) Description 01/09/2024 Orders Only [facility] [address] [address] Jenny Baker Allergies Active Allergy Reactions Criticality Noted Date Comments Atorvastatin Calcium Musculoskeletal 07/30/2021 Muscle pain Clindamycin Hives 07/26/2021 documented as of this encounter (statuses as of 01/09/2024) Medications Medication Sig Dispensed Refills Start Date [...] as of this encounter (statuses as of 01/09/2024) Active Problems Problem Noted Date Diagnosed Date Pseudophakia, right eye 08/14/2021 Combined form of age-related cataract, left eye 08/14/2021 Epiretinal membrane (ERM) of right eye 2 Combined forms of age-related cataract of right eye 07/26/2021 Overview (07/26/2021): Added automatically from request for surgery [id number] History of myocardial infarction 01/11/2021 Overview (02/15/2021): December 2020: STEMI /w PCI/NORM to LAD Testosterone deficiency 10/26/2020 documented as of this encounter (statuses as of 01/09/2024) Resolved Problems Problem Noted Date Diagnosed Date Resolved Date STEMI (ST elevation myocardial infarction) 01/11/2021 02/15/2021 Overview (01/31/2021): December 2020: STEMI - PCI/NORM to LAD documented as of this encounter (statuses as of 01/09/2024) Immunizations Name Administration Dates Next Due MODERNA [...] Office Visit [facility] [address] [phone] Robb Fairchild MD [address] [address] Scheduled Orders Name Type Priority Associated Diagnoses Orde r Schedule AMBULATORY 12 LEAD EKG (GLOBAL) EKG Routine Coronary artery disease, unspecified vessel or lesion type, unspecified whether angina present, unspecified whether [place] or transplanted heart Ordered: 01/09/2024 Health Maintenance Due Date Last Done Comments [...] this encounter Medical Devices Implanted Type Area Wildlife Biostation Research Ecologist Device Identifier Shelf Expiration Date Model / Serial / Lot Iol Sa60wf.160 Sp As Aspheric - [id number] Implanted:Qty: 1 on 08/13/2021 by Darlin Saldivar MD at [facility] Right: Eye [employer] 08/27/2025 SA60WF.160 / [id number] / documented as of this encounter Visit Diagnoses Diagnosis Coronary artery disease, unspecified vessel or lesion type, unspecified whether angina present, unspecified whether b[place] or transplanted heart- Primary documented in this encounter Insurance Payer Benefit Plan / Group Subscriber ID Effective Dates Phone Address Type [employer] COMM[employer] BLUE MEDICARE HMO PPO [employer] MEDICARE PPO [id number] 1 2022-Pres ent [address] [place] [address] Rina ERAZO/BS documented as of this encounter Care Teams Glass Fitter Relationship Specialty Start Date End Date Emily Coon MD [address] [facility] [place] [address] PCP - General INTERNAL MEDICINE 10/27/20 documented as of this encounter
--- OUTSIDE RECORDS SUMMARY | 2024-06-02 09:57 | External Medical Summary | Summary of Care ---
Author Name Unknown Organization [facility] Address [address] [address] Care Team Providers Care Joint Filler Name Role Phone Emily Coon MD Primary Care Provider [phone] Reason for Visit * Reason Comments Follow Up Encounter Details Date Type Department Care Team (Late st Contact Info) Description 01/12/2024 10:00 AM EDT Office Visit [facility] [address] [phone] Robb Fairchild MD [address] [address] Coronary artery disease involving [place] coronary artery of [place] heart without angina pectoris (Primary Dx); Hypertension, [...] (07/26/2021): Added automatically from request for surgery [id number] History of myocardial infarction 01/11/2021 Overview (02/15/2021): [...] remote telehealth virtual visit was provided through [employer] Client, with the patient located at [facility] , and I was located at [...] 07/26/2021 Added automatically from request for surgery [id number] History of myocardial infarction 01/11/2021: STEMI /w [...] Procedure: COLONOSCOPY; Surgeon: Domingo Fried MD; Location: [facility] MAIN OR HEMORRHOIDECTOMY VT REMV CATARACT EXTRACAP,INSERT LENS Right 08/13/2021 Procedure: PHACOEMULSIFICATION WITH INTRA OCULAR LENS; Surgeon: Darlin Saldivar MD; [facility] VT REMV PILONIDAL LESION COMPLIC VT REPAIR OF NASAL SEPTUM X2 VT REPAIR SLIDING INGUINAL HERNIA Left Family History [...] IMPRESSION/PLAN: ICD-10-CM 1. Coronary artery disease involving [place] coronary artery of [place] heart without angina [id number] 2. Hypertension, unspecified type I10 3. Dyslipidemia [...] Office Visit [facility] [address] [phone] Robb Farichild MD [address] [address] Health Maintenance [...] this encounter Medical Devices Implanted Type Area Tagman Device Identifier Shelf Expiration Date Model / Serial / Lot Iol Sa60wf.160 Sp As Aspheric - [id number] Implanted:Qty: 1 on 08/13/2021 by Darlin Saldivar MD at [facility] Right: Eye [employer] 08/27/2025 SA60WF.160 / [id number] / documented as of this encounter Visit Diagnoses Diagnosis Coronary artery disease involving [place] coronary artery of [place] heart without angina pectoris- Primary Hypertension, unspecified type Dyslipidemia Other and unspecified hyperlipidemia First degree AV block First degree atrioventricular block Right bundle branch block documented in this encounter Care Teams Joint Filler Relationship Specialty Start Date End Date Emily Coon MD [address] [place] [address] PCP - General INTERNAL MEDICINE 10/27/20 documented as of this encounter
--- NOTE | 2024-06-02 09:59 | Ultrasound Report ---
BILATERAL LOWER EXTREMITY VENOUS DOPPLER CLINICAL HISTORY: Pulmonary emboli. Evaluate for deep venous thrombus. COMPARISON STUDY: No previous studies for comparison. TECHNIQUE: Sonography of the deep venous system of the bilateral lower extremities was performed. Co mpression and augmentation were evaluated. FINDINGS: The bilateral common femoral, superficial femoral and popliteal veins were compressible. A ugmentation was normal. Flow was shown within the deep calf vessels. IMPRESSION: No evidence of deep venous thrombus within the bilateral lower extremities. ACT 112: Negative or not required by law. Electronically signed by: Aleksander Betts M.D. 06/02/2024 9:58 AM
[2024-06-02] MEDS: oxyCODONE HCL IR 5 MG TAB (IMMEDIATE RELEASE) PO PRN (12:54)
[2024-06-02] MEDS: LIDOCAINE 5% 1 PATCH TD SCH (12:55)
[2024-06-03 07:08] LABS: Hematocrit (blood only) 41.6 % (42.0-52.0); Hemoglobin 13.9 g/dl (14.0-18.0); Mean Corpuscular Hgb Conc 33.4 g/dL (32.0-36.0); Mean Corpuscular Volume 92.7 fL (80.0-100.0); Mean Platelet Volume 11.3 fL (9.4-12.4); Platelet Count 152 K/uL (130-400); RDW Coefficient of Variation 13.5 % (11.5-14.5); Red Blood Count 4.49 M/uL (4.70-6.10); White Blood Count 10.63 K/ul (4.8-10.8)
[2024-06-03 07:23] LABS: BUN Creatinine Ratio 15.1 (10-20); Calcium 9.2 mg/dl (8.6-10.3)
[2024-06-03 07:28] LABS: ANTI-Xa, UFH(UnfractionatedHep 0.53 IU/ml (0.3-0.7)
[2024-06-03] MEDS: APIXABAN 5 MG TABLET PO SCH (08:01)
--- NOTE | 2024-06-03 09:18 | Discharge Summary ---
Discharge Summary Date of Service June 03, 2024 Principal Dx & Hospital Course #1 = Principal Diagnosis (1) Acute pulmonary embolism: (2) CAD (coronary artery disease): (3) BPH (benign prostatic hyperplasia): Mr. Bustillos is a 73-year-old male with history of CAD s/p NORM to LAB, prior STEMI, BPH, and colonic polyps presented to ED with chest pain, right lower rib area that started 2 days ago and found to have RLL pulm emboli. BLE dopplers negative. ECHO with mild right ventricular dilatation but no systolic dysfunction. Patient ambulating in room and transitioned to eliquis. Patient reports feeling "great" on day of discharge. It was emphasized the need for prompt follow up for colonoscopy in next 1-2 months and OP referral for hematology. Patient doing well on pain regimen # Acute RLL Pulmonary Embolism , unprovoked Pt presents with symptomatic but hemodynamically stable PE with imaging findings of right ventricular strain. Unclear trigger, as pt is without past hx suggestive of hypercoagulable state or recent travel. BNP 32, Trop 7.6 CT PE: possible pulm infarct, RLL emboli, Right heart strain on CT - Anticoagulation: Eliquis - ECHO EF 50-55%, no RWMA, mild RV dilation, systolic function normal no PHTN - Will need outpatient hypercoagulability studies - Ensure outpatient age appropriate cancer screening, due for repeat dopplers negative #CAD s/p NORM in LAB 2020 #Hx of STEMI 12/2020 Status post stent 3 years ago completed 2 years of DAPT, on asa monotherapy #BPH Continue Flomax CODE STATUS Full code Disposition Lives at home with his plan of care discussed 75 min at bedside with and patient Notes For Next Care Provider -Urgent referral for Colonscopy given abnormal scope in 2020 and missed follow up scope (now with emboli) -Repeat ECHO and Chest CT in 1-2 months -Referral to Heme for appropriate hypercoag studies Medication Changes From Visit Eliquis 10mg BID until 06/10, then 5mg BID Oxycodone 5mg q6h for pain iso pulm infarct #10 Admission HPI Per Admitting Provider 73-year-old male with history of CAD, BPH presenting with chest pain, right lower rib area that started 2 days ago. Patient was doing fine until last Friday when he developed sudden right lower rib/chest wall pain while resting-sharp, severe, worse with inspiration, associated with some shortness of breath with exertion. He was able to go to work yesterday but the chest pain actually worsened. Patient was taking Advil with minimal relief. Today, the pain persisted prompting consult to the ER. At the ER, patient was received with stable vital signs overall, not hypoxic. CT chest showed right lower lobe subsegmental pulmonary emboli. Troponin negative EKG no signs of acute ischemia or infarct Heparin drip with bolus started. IV morphine given On exam, patient seen sitting up in bed, on room air, not in distress. States morphine has provided some relief with his pain, but still significant. Denies active dizziness, headache, palpitations, nausea, fevers or chills. No other new symptoms No recent illness, immobilization, poor ambulation, surgery, long car drives or flights. Denies family history of blood clots. Admission Exam Per Admitting Provider General- oriented x 3, not in distress, speaks in sentences with no effort or accessory muscle use Head- atraumatic Eyes- PERRL, EOMI, anicteric ENT- oropharynx clear Neck- supple, no JVD, no adenopathy, no thyromegaly; carotids +2/2, no bruits appreciated Lungs- clear to auscultation bilaterally, no rales/wheezes Heart- normal rate, regular rhythm; no murmur, no gallop, no rub appreciated Abdomen- normal bowel sounds, nondistended, soft, nontender, no masses or hepatosplenomegaly Extremities- no pretibial edema, no calf tenderness; peripheral pulses intact Neuro- alert, oriented x 3; CN 2-12 grossly intact; motor 5/5 bilaterally;sensation 100% on all extremities; no other gross focal neurologic deficits Skin- warm & dry Discharge Exam Constitutional WD/WN, vitals as above Respiratory normal respiratory effort, lungs clear to auscultation Cardiovascular RRR, no murmur, no edema Gastrointestinal (Abdomen) normal bowel sounds, soft, nontender, no hepatosplenomegaly Musculoskeletal no cyanosis or clubbing, extremities motor strength 5/5 Updated Medication List Medication Instructions Recorded Confirmed Type aspirin 81 mg chewable tablet 81 mg PO DAILY 06/01/24 06/01/24 History rosuvastatin 5 mg tablet 5 mg PO HS 06/01/24 06/01/24 History tamsulosin 0.4 mg capsule 0.4 mg PO HS 06/01/24 06/01/24 History apixaban 5 mg tablet (Eliquis) See Rx Instructions .Route 06/02/24 Rx .COMPLEX #74 tabs lidocaine 5 % topical patch 1 patch transdermal QAM #14 ea 06/03/24 Rx oxycodone 5 mg tablet 5 mg PO Q4H PRN pain #10 tabs 06/03/24 Rx Hospital Stay Data Consultations 06/01/24 17:08 ED Decision to Admit Stat 06/01/24 17:42 Consult Pulmonology Routine Diagnostic Imagining Performed 06/01/24 15:59 CT angio chest PE protocol Stat 06/02/24 06:58 US venous doppler LE BI Routine Pending Results Patient Have Any Pending Studies at Discharge: No Discharge Instructions Given to Patient (Per Discharging Provider) You were admitted for chest pain and found to have right lower lobe pulmonary emboli with signs of small infarction (or tissue from the clots). You were started on IV heparin and transitioned to oral eliquis (apixaban) to help thin your blood while your body breaks down the clot. There was no clear source for the clots. Given your history of abnormal colonoscopy, it is prudent to follow up with your PCP and request a referral for urgent colonoscopy in the next 1-2 months You will need to discuss timing of repeat CT scan of chest and repeat Echocardiogram in 1-2 months. Also discuss a referral to Hematology You will continue Eliquis 10mg (2 tablets ) two times a day until 06/10, then on 06/11 you will start Eliquis 5mg (1 tablet) two times a day. You can continue tylenol 650-1000mg every 8 hours for pain as needed You will be sent a script for Oxycodone 5mg for severe pain to be used no more frequently than every 6 hours Please ensure bowel movement every 1 to 2 days. If noting constipation please trial miralax or other stool softener as needed Total Time Total Time Spent Total Time Spent (In Minutes): 45
--- NOTE | 2024-06-03 10:46 | Pulmonology Progress Note ---
Date of Service June 03, 2024 Assessment & Plan (1) Acute pulmonary embolism: Acute cor pulmonale presence: unspecified Pulmonary embolism type: unspecified Qualified Code(s): I26.99 - Other pulmonary embolism without acute cor pulmonale (2) Abnormal chest CT: (3) Chest pain: Chest pain type: unspecified Qualified Code(s): R07.9 - Chest pain, unspecified Plan CTA chest 06/01/2024 personally reviewed: Pulmonary emboli appreciated on the right side Patchy groundglass opacity in the right lower lobe with small right-sided pleural effusion No right heart strain No significant mediastinal lymphadenopathy 2D echo 06/02/2024: EF 50-55%, RV enlarged, mild to moderate dilated, systolic function is normal, trivial anterior loculated pericardial effusion -- Acute pulmonary emboli with likely right lower pulmonary sPESI 0 BNP normal, troponin normal Doppler bilateral lower extremity negative for DVT on 06/02/2024 Would consider to be unprovoked Recommend lifetime anticoagulation, 3-6 months with full dose anticoagulation followed by prophylactic anticoagulation Plan: Patient's 2D echo does show dilatation of the RV. I doubt this being solely caused from the pulmonary emboli. I think patient likely had dilatation of the RV to begin with. He had 2D echo done around 2020 when he had a cardiac cath and stents placed. Would recommend to compare it to that echo Continue with incentive spirometry with pain management to prevent splinting and increasing the risk of infection on the right side Patient would need repeat 2D echo and possibly repeat CT chest No further recommendation from pulmonary perspective, will sign off Please call directly with any questions Please note the above document was generated using voice recognition software. It may contain grammatical, syntax or spelling errors.Any formal questions or concerns about the content, text or information contained within the body of this dictation should be directly addressed to the provider for clarification. Admission and Anticipated Discharge Date Admission Date: June 01, 2024 Subjective Patient seen and examined at bedside. No acute distress, no adverse events overnight He was saturating 97-98% on room air Chest pain is controlled well by the medications Denied any hemoptysis No headache, no blurry vision Fair appetite Patient's was in the room at the time of examination Review of Systems 2 Review of Systems: All systems reviewed & are unremarkable except as noted in Subjective Physical Exam 2 Physical Exam: Constitutional: No acute distress HEENT: EOMI, PERRLA Respiratory system: Decreased air entry on the right side, no wheeze, no rhonchi, positive crackles bilateral lower lobes, more on the right side CVS: S1-S2 positive, no murmurs or gallops Abdomen: Soft, nontender, nondistended, positive bowel sounds x4 Extremities: +2 pulses bilaterally radialis, no cyanosis, no edema Neuro: Awake alert oriented x3 Psych: Normal mood and affect Skin: no rashes, warm and dry Lymphatic: no cervical or axillary lymphadenopathy Results & Data Results & Data Vital Signs (Past 12 Hours) Vital Signs Temp Pulse Pulse Resp BP Pulse Ox O2 Del Method 06/03/24 08:17 37.1 C 78 20 145/76 H 92 Room Air 06/03/24 08:00 Room Air 06/03/24 03:31 37.0 C 73 18 144/71 H 93 Room Air 06/02/24 23:15 80 Laboratory Results 06/03/24 06:06 06/03/24 06:06 PG Care Time/CCT Total # of Minutes Spent Total Time Spent with Patient: Total time spent is greater than 50% in coordination of care (as documented) at patient's floor/unit and/or counseling patient: Coding Level of Care Code 96652 SUB INP/OBS CARE 2/35MIN Diagnoses Acute pulmonary embolism I26.99 Acute cor pulmonale presence: unspecified Pulmonary embolism type: unspecified Abnormal chest CT R93.89 Chest pain R07.9 Chest pain type: unspecified
[2024-06-03 11:30] VITALS: PULSE 74; RESP 18; TEMP 98.2; O2SAT 93
[2024-06-03 13:10] VITALS: BP 153/74
== END 2024-06-03 14:42 | disposition home or self-care (01) | DRG 176 ==
LOC: ED 14:47 → SUATTDRO 17:22 → 2E 17:22